=== PATIENT | female | born 1980 | race Caucasian/White ===

== ENCOUNTER 2019-06-19 14:07 | Emergency (ER) | payer OTHER ==
[2019-06-19 14:28] VITALS: BP 158/95; PULSE 117
[2019-06-19] MEDS ORDERED: HYDROmorphone 0.5 MG/0.5 ML Syringe IVPUSH ONE (14:57)
[2019-06-19] MEDS ORDERED: Ketorolac 30 MG/ML SDV IVPUSH ONE (14:57)
[2019-06-19] MEDS ORDERED: Ondansetron 4 MG/2 ML SDV IVPUSH ONE (14:57)
[2019-06-19] MEDS ORDERED: Sodium Chloride 0.9% 1,000 ML IV SCH (15:00)
[2019-06-19] MEDS ORDERED: Sodium Chloride 0.9% 10 ML Syringe FLUSH PRN (15:42)
--- NOTE | 2019-06-19 15:47 | EDM.PDOC ---
ED HPI GENERAL MEDICAL PROBLEM - General Chief Complaint: Flank Pain Stated Complaint: KIDNEY STONE Time Seen by Provider: 06/19/19 14:28 Source of Information: Reports: Patient History Limitations: Reports: No Limitations - History of Present Illness INITIAL COMMENTS - FREE TEXT/NARRATIVE: Patient is a 38-year-old female who presents with complaints of left-sided flank pain, nausea, and fever since last . Patient states that she did notice blood in her urine. Patient has a history of kidney stones some of which have cleared on their own and some that required lithotripsy. States last time she had a kidney stone was 1-1/2 years ago. Denies any abdominal pain , dysuria, or diarrhea. - Related Data Allergies Allergy/AdvReac Type Severity Reaction Status Date / Time No Known Allergies Allergy Verified 06/19/19 14:24 Home Meds: Home Meds Albuterol [Proventil Neb Soln] 1.25 mg INH Q8HR PRN 10/02/14 [History] Formoterol/Mometasone [Dulera 100 MCG/5 MCG] 2 puff INH DAILY 10/02/14 [History] Tiotropium [Spiriva HandiHaler] 2 puff INH Q8HR PRN 10/02/14 [History] Acetaminophen/HYDROcodone [[place] 325-5 MG] 1 tab PO Q6H PRN #12 tablet 11/05/14 [Rx] Levofloxacin [Levaquin] 500 mg PO Q24H #4 tablet 11/05/14 [Rx] Ondansetron [Zofran ODT] 4 mg PO Q6H PRN #5 tab.dis 11/05/14 [Rx] Cyclobenzaprine [Flexeril] 10 mg PO TID PRN #10 tab 06/19/19 [Rx] Past Medical History HEENT History: Reports: Impaired Vision Other HEENT History: wears glasses Respiratory History: Reports: Asthma [employer] History: Reports: Endometriosis, Other [employer] History: [id number] - Past Surgical History Female Surgical History: Reports: Kidney stone extraction, Lithotripsy/ESWL Social & Family History - Family History Family Medical History: Noncontributory - Tobacco Use Smoking Status *Q: Former Smoker Years of Tobacco use: 15 Used Tobacco, but Quit: Yes Month/Year Tobacco Last Used: 3 yrs ago - Caffeine Use Caffeine Use: Reports: Tea - Recreational Drug Use Recreational Drug Use: No ED ROS GENERAL - Review of Systems Review Of Systems: Comprehensive ROS is negative, except as noted in HPI. ED EXAM, RENAL/ - Physical Exam Exam: See Below Exam Limited By: No Limitations General Appearance: Alert, WD/WN, No Apparent Distress Respiratory/Chest: No Respiratory Distress, Lungs Clear, Normal Breath Sounds, No Accessory Muscle Use, Chest Non-Tender Cardiovascular: Normal Peripheral Pulses, Regular Rate, Rhythm, No Edema, No Gallop, No JVD, No Murmur, No Rub GI/Abdominal: Normal Bowel Sounds, Soft, Non-Tender, No Organomegaly, No Distention, No Abnormal Bruit, No Mass Back Exam: Normal Inspection, Full Range of Motion, CVA Tenderness (L) Neurological: Alert, Oriented, CN II-XII Intact, Normal Cognition, Normal Gait, Normal Reflexes, No Motor/Sensory Deficits Psychiatric: Normal Affect, Normal Mood Skin Exam: Warm, Dry, Intact, Normal Color, No Rash Course - Vital Signs Last Recorded V/S: Last Vital Signs Temp 98.1 F 06/19/19 14:25 Pulse 117 H 06/19/19 14:25 Resp 16 06/19/19 14:25 BP 158/95 H 06/19/19 14:25 Pulse Ox 98 06/19/19 14:25 - Orders/Labs/Meds Orders: Active Orders 24 hr Category Date Time Status Peripheral IV Care [RC] . DIRECTED Care 06/19/19 15:42 Active Peripheral IV Insertion Adult [OM.PC] Stat Oth 06/19/19 15:42 Ordered Labs: Laboratory Tests 06/19/19 06/19/19 06/19/19 Range/Units 14:38 16:55 16:55 WBC 10.38 H (3.98-10.04) K/mm3 RBC 3.88 L (3.98-5.22) M/mm3 Hgb 13.3 (11.2-15.7) gm/dl Hct 40.5 (34.1-44.9) % MCV 104.4 H (79.4-94.8) fl MCH 34.3 H (25.6-32.2) pg MCHC 32.8 (32.2-35.5) g/dl RDW Std Deviation 57.3 H (36.4-46.3) fL Plt Count 226 D (182-369) K/mm3 MPV 10.1 (9.4-12.3) fl Neut % (Auto) 76.9 H (34.0-71.1) % Lymph % (Auto) 16.0 L (19.3-51.7) % [place] % (Auto) 6.5 (4.7-12.5) % Eos % (Auto) 0.4 L (0.7-5.8) Baso % (Auto) 0.1 (0.1-1.2) % Neut # (Auto) 7.99 H (1.56-6.13) K/mm3 Lymph # (Auto) 1.66 (1.18-3.74) K/mm3 [place] # (Auto) 0.67 H (0.24-0.36) K/mm3 Eos # (Auto) 0.04 (0.04-0.36) K/mm3 Baso # (Auto) 0.01 (0.01-0.08) K/mm3 Manual Slide Review Abnormal smear Sodium 141 (136-145) mEq/L Potassium 3.3 L (3.5-5.1) mEq/L Chloride 102 (98-107) mEq/L Carbon Dioxide 26 (21-32) mEq/L Anion Gap 16.3 H (5-15) BUN 8 (7-18) mg/dL Creatinine 0.8 (0.55-1.02) mg/dL Est Cr Clr Drug Dosing 82.33 mL/min Estimated GFR (MDRD) > 60 (>60) mL/min BUN/Creatinine Ratio 10.0 L (14-18) Glucose 94 (74-106) mg/dL Calcium 8.3 L (8.5-10.1) mg/dL Total Bilirubin 0.8 (0.2-1.0) mg/dL AST 17 (15-37) U/L ALT 16 (14-59) U/L Alkaline Phosphatase 75 (46-116) U/L Total Protein 7.3 (6.4-8.2) g/dl Albumin 3.7 (3.4-5.0) g/dl Globulin 3.6 gm/dL Albumin/Globulin Ratio 1.0 (1-2) Urine Color Yellow (Yellow) Urine Appearance Cloudy H (Clear) Urine pH 5.5 (5.0-8.0) Ur Specific [place] > or = 1.030 (1.005-1.030) Urine Protein 1+ H (Negative) Urine Glucose (UA) Negative (Negative) Urine Ketones Negative (Negative) Urine Occult Blood Negative (Negative) Urine Nitrite Negative (Negative) Urine Bilirubin 1+ H (Negative) Urine Urobilinogen 0.2 (0.2-1.0) Ur Leukocyte Esterase Negative (Negative) Urine RBC Not seen (0-5) /hpf Urine WBC 0-5 (0-5) /hpf Ur Epithelial Cells 0-5 (0-5) /hpf Amorphous Sediment Many H (NOT SEEN) /hpf Urine Bacteria Moderate H (FEW) /hpf Urine Mucus Not seen (FEW) /hpf Meds: Medications Discontinued Medications Generic Name Dose Route Start Last Admin Trade Name Freq PRN Reason Stop Dose Admin Cyclobenzaprine HCl 10 mg 06/19/19 18:04 06/19/19 18:11 Flexeril PO 06/19/19 18:05 10 mg ONETIME ONE Administration Hydromorphone HCl 0.5 mg 06/19/19 14:57 06/19/19 15:16 Dilaudid IVPUSH 06/19/19 14:58 0.5 mg ONETIME ONE Administration Sodium Chloride 1,000 mls @ 999 mls/hr 06/19/19 15:00 06/19/19 15:15 Normal Saline IV 999 mls/hr ASDIRECTED FRIEDA Administration Ketorolac Tromethamine 30 mg 06/19/19 14:57 06/19/19 15:16 Toradol IVPUSH 06/19/19 14:58 30 mg ONETIME ONE Administration Ondansetron HCl 4 mg 06/19/19 14:57 06/19/19 15:16 Zofran IVPUSH 06/19/19 14:58 4 mg ONETIME ONE Administration Sodium Chloride 10 ml 06/19/19 15:42 06/19/19 15:43 Saline Flush FLUSH 10 ml ASDIRECTED PRN Administration Keep Vein Open - Re-Assessments/Exams Free Text/Narrative Re-Assessment/Exam: Patient's work-up was grossly unremarkable. Urinalysis was negative for infection or blood. CT scan of the abdomen did not show any signs of a kidney stone. Patient is tender to superficial palpation which leads me to me that this may be muscular in nature. We will discharge her home with Flexeril. Discharge instructions as documented. Departure - Departure Time of Disposition: 17:59 Disposition: Home, Self-Care 01 Condition: Fair Clinical Impression: Flank pain - Discharge Information *PRESCRIPTION DRUG MONITORING PROGRAM REVIEWED*: Yes *COPY OF PRESCRIPTION DRUG MONITORING REPORT IN PATIENT SAVANNA: No Prescriptions: Cyclobenzaprine [Flexeril] 10 mg PO TID PRN #10 tab PRN Reason: Muscle Spasm Instructions: Flank Pain, Adult Referrals: PCP,None [Primary Care Provider] - Forms: ED Department Discharge Additional Instructions: You were seen in the emergency department today for left-sided flank pain that started . Your work-up included blood work, urinalysis, and a CT of your abdomen and pelvis. Your blood work was negative for any signs of infection. Urinalysis did not show blood which is typically present with a kidney stone and there were also no signs of infection within your urine. CT of your abdomen showed no abnormalities. There are no signs of a kidney stone at this time. With your history, it is possible that she may have had a kidney stone at one point however it has passed. Your muscles are fairly tender to palpation on the back as well. It may be that the pain is coming from a muscle strain with in your back. A prescription has been sent for Flexeril, a muscle relaxer, to [facility]. Take this medication as prescribed for muscle spasms. Sure that you are getting enough fluid each day. If you should experience any worsening symptoms, please do not hesitate to return to the emergency department. Sepsis Event Note - Evaluation Sepsis Screening Result: No Definite Risk - Focused Exam Vital Signs: Vital Signs Temp Pulse Resp BP Pulse Ox 06/19/19 14:25 98.1 F 117 H 16 158/95 H 98 Date Exam was Performed: 06/19/19 Time Exam was Performed: 22:17 - My Orders Last 24 Hours: My Active Orders 06/19/19 15:42 Peripheral IV Care [RC] . DIRECTED Peripheral IV Insertion Adult [OM.PC] Stat - Assessment/Plan Last 24 Hours: My Active Orders 06/19/19 15:42 Peripheral IV Care [RC] . DIRECTED Peripheral IV Insertion Adult [OM.PC] Stat
--- NOTE | 2019-06-19 16:15 | CT ---
CT abdomen and pelvis Technique: Multiple axial sections were obtained from above the dome of the diaphragm inferiorly through the pubic symphysis. Intravenous and oral contrast not utilized. Study has been performed as a ureteral stone protocol. Comparison: Previous CT abdomen and pelvis exam of 06/06/13. Findings: There is a small calcification which is very close to the distal left ureter near the UVJ. I believe that this is outside the ureter as no ureteral dilatation is appreciated. No renal calculi are seen. No additional calcifications are noted. Visualized lung bases show nothing acute. Noncontrast appearance of the liver and spleen shows no discrete abnormality. Surgical clips are seen from prior cholecystectomy. Adrenal glands show no nodule. Pancreas shows no abnormality. Aorta shows no aneurysm. No retroperitoneal adenopathy or mesenteric abnormalities are seen. No pelvic mass or adenopathy is seen. No free fluid or inflammatory change is identified. Appendix is believed to be seen and appears normal in size. Bone window settings were reviewed. No acute osseous finding is appreciated. Impression: 1. Small calcification within the left pelvis near the bladder. As mentioned above, this is very close to the UVJ/left ureter but is felt to be outside the left ureter as no dilatation of the ureter is seen. No ureteral calculi are seen. 2. No renal calculi, ureteral dilatation or definite ureteral stone is appreciated. 3. Nothing acute is definitely appreciated on noncontrast CT study of the abdomen and pelvis. Diagnostic code #2 This report was dictated in [place] Standard Time
[2019-06-19] MEDS ORDERED: Cyclobenzaprine 10 MG Tab PO ONE (18:04)
== END 2019-06-19 18:15 | disposition home or self-care (01) ==
LOC: JD.ED 14:07
DX: R10.9 Unspecified abdominal pain (principal); J45.909 Unspecified asthma, uncomplicated; Z87.891 Personal history of nicotine dependence; Z87.442 Personal history of urinary calculi
CPT/HCPCS: 36415; 74176; 80053; 81001; 85025; 96361; 96374; 96375; 99284; A9270; J1170; J1885; J2405; J7030; 99283

== ENCOUNTER 2021-08-29 07:04 | Emergency (ER) | payer BC, OTHER ==
[2021-08-29 07:20] VITALS: BP 158/114; PULSE 108
[2021-08-29] MEDS ORDERED: Sodium Chloride 0.9% 10 ML Syringe FLUSH PRN (07:35)
[2021-08-29] MEDS ORDERED: Albuterol/Ipratropium 3.0-0.5 MG/3 ML Neb Soln NEB ONE ×2 (07:36→09:07)
[2021-08-29] MEDS ORDERED: methylPREDNISolone Sodium Succinate 125 MG/2 ML SDV IVPUSH ONE (07:36)
[2021-08-29 08:55] LABS: CORONAVIRUS COVID-19 NAA NEGATIVE (NEGATIVE)
== END 2021-08-29 10:38 | disposition home or self-care (01) ==
LOC: JD.ED 07:04
DX: J18.9 Pneumonia, unspecified organism (principal); Z20.822 Contact with and (suspected) exposure to COVID-19
CPT/HCPCS: 0241U; 36415; 71046; 80053; 85025; 86140; 94640; 96374; 99284; J2930; J3490; J7620-GY

== ENCOUNTER 2022-06-01 13:15 | Inpatient (IN) | payer BC ==
[2022-06-01] MEDS ORDERED: Albuterol/Ipratropium 3.0-0.5 MG/3 ML Neb Soln NEB ONE (13:33)
[2022-06-01] MEDS ORDERED: methylPREDNISolone Sodium Succinate 125 MG/2 ML SDV IVPUSH ONE (13:33)
[2022-06-01 14:02] LABS: ESTIMATED GFR 111 mL/min (>60)
[2022-06-01] MEDS ORDERED: Albuterol 0.083% 2.5 MG/3 ML Neb Soln NEB ONE ×3 (14:06→14:30)
[2022-06-01] MEDS ORDERED: Magnesium Sulfate (4.06 MEQ/ML) 5 GM/10 ML SDV IV ONE (14:07)
[2022-06-01] MEDS ORDERED: Albuterol 0.021% 0.63 MG/3 ML Neb Soln NEB ONE (14:15)
[2022-06-01 14:25] LABS: CORONAVIRUS COVID-19 NAA NEGATIVE (NEGATIVE)
[2022-06-01] MEDS ORDERED: Magnesium Sulfate/Water 2 GM in Premix Bag 1 BAG IV ONE (14:30)
[2022-06-01] MEDS ORDERED: Azithromycin 500 MG in Sodium Chloride 0.9% 250 ML IV ONE (15:41)
[2022-06-01] MEDS ORDERED: cefTRIAXone 2 GM in Sodium Chloride 0.9% 100 ML IV ONE ×2 (15:48→16:00)
[2022-06-01] MEDS ORDERED: Sodium Chloride 0.9% 500 ML IV ONE (15:53)
[2022-06-01] MEDS ORDERED: Sodium Chloride 0.9% 1,000 ML IV SCH (16:00)
[2022-06-01] MEDS ORDERED: Ondansetron 4 MG/2 ML SDV IV PRN (16:33)
[2022-06-01] MEDS ORDERED: Acetaminophen 325 MG Tab PO PRN (16:33)
[2022-06-01] MEDS ORDERED: Albuterol 0.083% 2.5 MG/3 ML Neb Soln NEB PRN (16:33)
[2022-06-01] MEDS ORDERED: Potassium Chloride 20 MEQ Tab.ER PO ONE (16:37)
[2022-06-01] MEDS: Albuterol/Ipratropium 3.0-0.5 MG/3 ML Neb Soln NEB SCH ×2 (16:43→20:08)
[2022-06-01] MEDS ORDERED: Albuterol/Ipratropium 3.0-0.5 MG/3 ML Neb Soln NEB SCH (16:45)
[2022-06-02] MEDS: Albuterol/Ipratropium 3.0-0.5 MG/3 ML Neb Soln NEB SCH ×6 (00:26→20:26)
[2022-06-02] MEDS ORDERED: Dextromethorphan HBr 30 MG/5 ML Susp ML PO PRN (07:53)
[2022-06-02] MEDS ORDERED: Phenol 1.4% Oral Spray 177 ML Bottle MUCMEM PRN (07:53)
[2022-06-02] MEDS: Enoxaparin 40 MG/0.4 ML Syringe SUBCUT SCH (08:57)
[2022-06-02] MEDS: methylPREDNISolone Sodium Succinate 125 MG/2 ML SDV IVPUSH SCH (08:57)
[2022-06-02] MEDS ORDERED: cefTRIAXone 500 MG Vial IVPUSH SCH (16:00)
[2022-06-02] MEDS: cefTRIAXone 2 GM in Sodium Chloride 0.9% 100 ML IV SCH (16:44)
[2022-06-02] MEDS: Azithromycin 500 MG in Sodium Chloride 0.9% 250 ML IV SCH (17:43)
[2022-06-02] MEDS: Dextromethorphan HBr 30 MG/5 ML Susp ML PO PRN (20:23)
[2022-06-03] MEDS: Albuterol/Ipratropium 3.0-0.5 MG/3 ML Neb Soln NEB SCH ×6 (00:07→21:15)
[2022-06-03] MEDS: methylPREDNISolone Sodium Succinate 125 MG/2 ML SDV IVPUSH SCH (08:28)
[2022-06-03] MEDS: Enoxaparin 40 MG/0.4 ML Syringe SUBCUT SCH (08:28)
[2022-06-03] MEDS: guaiFENesin 600 MG Tab.ER PO SCH ×2 (10:12→20:35)
[2022-06-03] MEDS: cefTRIAXone 2 GM in Sodium Chloride 0.9% 100 ML IV SCH (16:44)
[2022-06-03] MEDS: Azithromycin 500 MG in Sodium Chloride 0.9% 250 ML IV SCH (17:15)
[2022-06-03] MEDS: Dextromethorphan HBr 30 MG/5 ML Susp ML PO PRN (23:00)
[2022-06-04] MEDS: Albuterol/Ipratropium 3.0-0.5 MG/3 ML Neb Soln NEB SCH ×4 (01:13→16:08)
[2022-06-04] MEDS ORDERED: predniSONE 20 MG Tab PO SCH (07:00)
[2022-06-04] MEDS ORDERED: Potassium Chloride 20 MEQ Tab.ER PO ONE (10:04)
[2022-06-04] MEDS: guaiFENesin 600 MG Tab.ER PO SCH (10:20)
[2022-06-04] MEDS: Enoxaparin 40 MG/0.4 ML Syringe SUBCUT SCH (10:20)
[2022-06-04 13:26] VITALS: BP 150/108; PULSE 106
== END 2022-06-04 13:23 | disposition home or self-care (01) | DRG 139 ==
LOC: JD.ED 13:15 → JD.MS 16:27
PROVIDERS: ADMIT Internal Medicine; ATTEND Internal Medicine
DX: J15.7 Pneumonia due to Mycoplasma pneumoniae (principal); J96.01 Acute respiratory failure with hypoxia; J20.9 Acute bronchitis, unspecified; J45.51 Severe persistent asthma with (acute) exacerbation; H54.7 Unspecified visual loss; Z20.822 Contact with and (suspected) exposure to COVID-19; Z79.899 Other long term (current) drug therapy; Z87.891 Personal history of nicotine dependence
CPT/HCPCS: 0240U; 36415; 36600; 71045; 71045-26; 80048; 80053; 82803; 83605; 84484; 85025; 85379; 86738; 87040; 93005; 94640; 94761; 96365; 96366; 96367; 96368; 96375; 99285-25; A9270-GY; J0456; J0696; J1650; J2930; J3475; J7030; J7050; J7512; J7620-GY

== ENCOUNTER 2022-08-29 14:02 | Emergency (ER) | payer BC ==
[2022-08-29 14:16] VITALS: BP 166/99; PULSE 96
[2022-08-29] MEDS ORDERED: HYDROmorphone 1 MG/ML Syringe IVPUSH ONE (14:36)
[2022-08-29] MEDS ORDERED: Tamsulosin 0.4 MG Cap.ER PO ONE (14:36)
[2022-08-29] MEDS ORDERED: Ondansetron 4 MG/2 ML SDV IVPUSH ONE (14:36)
[2022-08-29] MEDS ORDERED: Ketorolac 30 MG/ML SDV IVPUSH STA (14:36)
[2022-08-29] MEDS ORDERED: Sodium Chloride 0.9% 1,000 ML IV SCH (14:45)
== END 2022-08-29 18:19 | disposition home or self-care (01) ==
LOC: JD.ED 14:02
DX: R10.9 Unspecified abdominal pain (principal); R11.2 Nausea with vomiting, unspecified; J45.909 Unspecified asthma, uncomplicated; Z87.891 Personal history of nicotine dependence; Z90.49 Acquired absence of other specified parts of digestive tract
CPT/HCPCS: 74176; 81001; 96361; 96374; 96375; 99284; A9270; J1170; J1885; J2405; J7030

== ENCOUNTER 2023-09-21 15:57 | Observation (INO) | payer BC, OTHER ==
[2023-09-21 16:43] LABS: BASOPHILS ABSOLUTE AUTO 0.1 K/mm3 (0.0-0.2); BASOPHILS PERCENT AUTO 0.8 % (0.0-1.0); EOSINOPHILS ABSOLUTE AUTO 0.1 K/mm3 (0.0-0.4); EOSINOPHILS PERCENT AUTO 1.2 % (0.0-6.0); HEMATOCRIT 37.9 % (37.0-47.0); HEMOGLOBIN 12.6 gm/dl (12.0-16.0); IMMATURE GRAN ABSOLUTE AUTO 0.02 K/mm3 (0.00-0.05); IMMATURE GRAN PERCENT AUTO 0.3 % (0.0-0.4); LYMPHOCYTES ABSOLUTE AUTO 2.2 K/mm3 (1.0-4.8); LYMPHOCYTES PERCENT AUTO 36.7 % (24.0-44.0); MEAN CORPUSCULAR HEMOGLOBIN 32.4 pg (28.0-32.0); MEAN CORPUSCULAR HGB CONC 33.2 g/dl (32.0-36.0); MEAN CORPUSCULAR VOLUME 97.4 fl (83.0-99.0); MEAN PLATELET VOLUME 10.2 fl (9.4-12.3); MONOCYTES ABSOLUTE AUTO 0.5 K/mm3 (0.0-0.8); MONOCYTES PERCENT AUTO 9.1 % (0.0-8.0); NEUTROPHILS ABSOLUTE AUTO 3.1 K/mm3 (1.8-7.7); NEUTROPHILS PERCENT AUTO 51.9 % (41.0-71.0); PLATELET COUNT,PLT 253 K/mm3 (150-400); RED BLOOD CELL COUNT 3.89 M/mm3 (4.10-5.30); WHITE BLOOD CELL COUNT,WBC 5.94 K/mm3 (3.9-11.3)
[2023-09-21 16:59] LABS: INR 1.02; PROTHROMBIN TIME 10.9 SECONDS (9.7-12.0)
[2023-09-21 17:03] LABS: A/G RATIO 1.1 (1-2); ALBUMIN 3.8 g/dl (3.4-5.0); ANION GAP 16.3 (5-15); BILIRUBIN TOTAL 0.7 mg/dL (0.2-1.0); BUN/CREATININE RATIO 18.6 (14-18); CALCIUM 9.1 mg/dL (8.5-10.1); CREATININE 0.7 mg/dL (0.55-1.02); EST CRCL DRUG DOSING (CG) 86.6 mL/min; MAGNESIUM 1.2 mg/dL (1.8-2.4); PHOSPHORUS 3.5 mg/dL (2.6-4.7); POTASSIUM,K 3.3 mEq/L (3.5-5.1); PROTEIN TOTAL,TP 7.3 g/dl (6.4-8.2)
[2023-09-21 17:25] LABS: APPEARANCE,URINE CLEAR (Clear); BILIRUBIN,URINE NEGATIVE (Negative); COLOR,URINE YELLOW (Yellow); GLUCOSE,URINE NEGATIVE (Negative); KETONES,URINE NEGATIVE (Negative); LEUKOCYTE ESTERASE,URINE NEGATIVE (Negative); NITRITE,URINE NEGATIVE (Negative); OCCULT BLOOD,URINE NEGATIVE (Negative); PROTEIN,URINE NEGATIVE (Negative); UROBILINOGEN,URINE 0.2 (0.2-1.0)
[2023-09-21] MEDS: Albuterol/Ipratropium 3.0-0.5 MG/3 ML Neb Soln NEB ONE (18:38)
[2023-09-21] MEDS: methylPREDNISolone Sodium Succinate 125 MG/2 ML SDV IVPUSH ONE (18:40)
[2023-09-21] MEDS: Aspirin 81 MG Tab.Chew PO ONE (20:30)
[2023-09-21] MEDS: Magnesium Sulfate/Water 2 GM in Premix Bag 1 BAG IV ONE (20:31)
[2023-09-21] MEDS: hydrALAZINE 20 MG/ML SDV IVPUSH ONE (20:31)
[2023-09-21] MEDS: Non-Formulary Medication 1 Each (Budesonide/Formoterol Fumarate [Symbicort 160-4.5 Mcg Inh INH SCH (22:03)
[2023-09-21] MEDS ORDERED: Albuterol 0.042% 1.25 MG/3 ML Neb Soln INH PRN (22:07)
[2023-09-21] MEDS: Montelukast 10 MG Tab PO SCH (22:21)
[2023-09-21] MEDS: diphenhydrAMINE 25 MG Cap PO SCH (22:21)
[2023-09-21] MEDS: Albuterol/Ipratropium 3.0-0.5 MG/3 ML Neb Soln NEB SCH (22:52)
[2023-09-22 04:54] LABS: BASOPHILS PERCENT AUTO 0.1 % (0.0-1.0); HEMATOCRIT 39.1 % (37.0-47.0); IMMATURE GRAN ABSOLUTE AUTO 0.04 K/mm3 (0.00-0.05); IMMATURE GRAN PERCENT AUTO 0.5 % (0.0-0.4); LYMPHOCYTES ABSOLUTE AUTO 0.7 K/mm3 (1.0-4.8); LYMPHOCYTES PERCENT AUTO 8.1 % (24.0-44.0); MEAN CORPUSCULAR HEMOGLOBIN 32.2 pg (28.0-32.0); MEAN CORPUSCULAR HGB CONC 33.2 g/dl (32.0-36.0); MEAN CORPUSCULAR VOLUME 96.8 fl (83.0-99.0); MEAN PLATELET VOLUME 10.6 fl (9.4-12.3); MONOCYTES ABSOLUTE AUTO 0.1 K/mm3 (0.0-0.8); NEUTROPHILS ABSOLUTE AUTO 7.2 K/mm3 (1.8-7.7); NEUTROPHILS PERCENT AUTO 90.3 % (41.0-71.0); PLATELET COUNT,PLT 259 K/mm3 (150-400); RED BLOOD CELL COUNT 4.04 M/mm3 (4.10-5.30); WHITE BLOOD CELL COUNT,WBC 7.99 K/mm3 (3.9-11.3)
[2023-09-22 05:36] LABS: ALBUMIN 3.4 g/dl (3.4-5.0); ANION GAP 17.6 (5-15); BILIRUBIN TOTAL 0.9 mg/dL (0.2-1.0); BUN/CREATININE RATIO 13.3 (14-18); CALCIUM 8.6 mg/dL (8.5-10.1); CREATININE 0.9 mg/dL (0.55-1.02); EST CRCL DRUG DOSING (CG) 67.36 mL/min; POTASSIUM,K 3.6 mEq/L (3.5-5.1); PROTEIN TOTAL,TP 6.9 g/dl (6.4-8.2)
[2023-09-22 06:04] LABS: SLIDE REVIEW ABNORMAL SMEAR
[2023-09-22] MEDS: Magnesium Sulfate/Water 2 GM/50 ML BAG IV ONE (08:10)
[2023-09-22] MEDS: oxyCODONE 5 MG Tab PO ONE (08:10)
[2023-09-22] MEDS: Nicotine 14 MG/24 Hr Patch TRDERM ONE (08:14)
[2023-09-22 09:15] LABS: HEMOGLOBIN A1C 5.1 %
[2023-09-22] MEDS: Losartan 50 MG Tab PO SCH (09:44)
[2023-09-22 11:28] VITALS: BP 126/83; PULSE 114
== END 2023-09-22 14:24 | disposition home or self-care (01) ==
LOC: JD.ED 15:57 → JD.MS 19:12
PROVIDERS: ADMIT Internal Medicine; ATTEND Internal Medicine
DX: G45.9 Transient cerebral ischemic attack, unspecified (principal); I16.0 Hypertensive urgency; E83.42 Hypomagnesemia; I10 Essential (primary) hypertension; J45.909 Unspecified asthma, uncomplicated; F17.210 Nicotine dependence, cigarettes, uncomplicated; Z79.899 Other long term (current) drug therapy
CPT/HCPCS: 36415; 70450; 70551; 71045; 80053; 81003; 81025; 82947; 83036; 83735; 84100; 84484; 85025; 85610; 94640; 94760; 94761; 96365; 96375; 97161; 99285; A9270; J0360; J2930; J3475; 96366; G0378; J7620-GY

== ENCOUNTER 2023-10-31 22:10 | Emergency (ER) | payer OTHER ==
[2023-10-31 22:37] LABS: BASOPHILS PERCENT AUTO 0.4 % (0.0-1.0); EOSINOPHILS ABSOLUTE AUTO 0.1 K/mm3 (0.0-0.4); EOSINOPHILS PERCENT AUTO 1.2 % (0.0-6.0); HEMATOCRIT 35.4 % (37.0-47.0); HEMOGLOBIN 11.8 gm/dl (12.0-16.0); IMMATURE GRAN ABSOLUTE AUTO 0.02 K/mm3 (0.00-0.05); IMMATURE GRAN PERCENT AUTO 0.2 % (0.0-0.4); LYMPHOCYTES ABSOLUTE AUTO 2.2 K/mm3 (1.0-4.8); LYMPHOCYTES PERCENT AUTO 25.3 % (24.0-44.0); MEAN CORPUSCULAR HEMOGLOBIN 32.7 pg (28.0-32.0); MEAN CORPUSCULAR HGB CONC 33.3 g/dl (32.0-36.0); MEAN CORPUSCULAR VOLUME 98.1 fl (83.0-99.0); MEAN PLATELET VOLUME 10.1 fl (9.4-12.3); MONOCYTES ABSOLUTE AUTO 0.7 K/mm3 (0.0-0.8); MONOCYTES PERCENT AUTO 7.9 % (0.0-8.0); NEUTROPHILS ABSOLUTE AUTO 5.6 K/mm3 (1.8-7.7); PLATELET COUNT,PLT 254 K/mm3 (150-400); RED BLOOD CELL COUNT 3.61 M/mm3 (4.10-5.30); WHITE BLOOD CELL COUNT,WBC 8.53 K/mm3 (3.9-11.3)
[2023-10-31 22:47] LABS: INR 0.96; PROTHROMBIN TIME 10.3 SECONDS (9.7-12.0)
[2023-10-31 22:48] LABS: PTT,PARTIAL THROMBOPLSTIN TIME 27.1 SECONDS (21.7-31.4)
[2023-10-31 23:03] LABS: A/G RATIO 1.1 (1-2); ALANINE AMINOTRANSFERASE,ALT 23 U/L (14-59); ALBUMIN 4.1 g/dl (3.4-5.0); ALKALINE PHOSPHATASE 77 U/L (46-116); ANION GAP 17.8 (5-15); ASPARTATE AMNIOTRANSFERASE,AST 28 U/L (15-37); BILIRUBIN TOTAL 0.4 mg/dL (0.2-1.0); BLOOD UREA NITROGEN,BUN 17 mg/dL (7-18); BUN/CREATININE RATIO 15.5 (14-18); CALCIUM 7.6 mg/dL (8.5-10.1); CARBON DIOXIDE,CO2 28 mEq/L (21-32); CHLORIDE,CL 94 mEq/L (98-107); CREATININE 1.1 mg/dL (0.55-1.02); ESTIMATED GFR 64 mL/min (>60); GLUCOSE RANDOM 102 mg/dL (70-99); POTASSIUM,K 2.8 mEq/L (3.5-5.1); SODIUM,NA 137 mEq/L (136-145); TROPONIN I HIGH SENSITIVITY 7 pg/mL (<=51)
[2023-10-31] MEDS: Iopamidol 755 Mg/ML 100 ML Bottle IVPUSH ONE (23:09)
[2023-10-31 23:11] LABS: HCG QUANTITATIVE < 1.0 mIU/mL
[2023-10-31] MEDS ORDERED: Sodium Chloride 0.9% 100 ML IV SCH (23:15)
[2023-10-31] MEDS: Sodium Chloride 0.9% 10 ML Syringe FLUSH PRN (23:27)
[2023-11-01] MEDS: Sodium Chloride 0.9% 1,000 ML IV SCH (00:36)
[2023-11-01] MEDS: Potassium Chloride 10 MEQ in Premix Bag 1 BAG IV ONE (00:37)
[2023-11-01] MEDS: Potassium Chloride 20 MEQ Tab.ER PO ONE (00:37)
[2023-11-01] MEDS: Calcium Carbonate/Vitamin D3 600 MG-200 Units Tab PO ONE (00:44)
[2023-11-01 02:25] VITALS: BP 125/82; PULSE 100
== END 2023-11-01 02:00 | disposition home or self-care (01) ==
LOC: JD.ED 22:10
DX: R53.1 Weakness (principal); Z86.73 Personal history of transient ischemic attack (TIA), and cerebral infarction without residual deficits; I10 Essential (primary) hypertension; Z79.51 Long term (current) use of inhaled steroids; Z79.82 Long term (current) use of aspirin; Z79.899 Other long term (current) drug therapy
CPT/HCPCS: 36415; 70450; 70496; 70498; 80053; 82947; 84484; 84702; 85025; 85610; 85730; 93005; 96365; 99285; A9270; J3480; J3490; J7030; Q9967

== ENCOUNTER 2023-11-23 18:14 | Emergency (ER) | payer OTHER ==
[2023-11-23 18:30] VITALS: BP 135/115; PULSE 119
[2023-11-23 18:58] LABS: BASOPHILS PERCENT AUTO 0.5 % (0.0-1.0); EOSINOPHILS ABSOLUTE AUTO 0.1 K/mm3 (0.0-0.4); EOSINOPHILS PERCENT AUTO 1.2 % (0.0-6.0); HEMATOCRIT 33.6 % (37.0-47.0); HEMOGLOBIN 11.4 gm/dl (12.0-16.0); IMMATURE GRAN ABSOLUTE AUTO 0.02 K/mm3 (0.00-0.05); IMMATURE GRAN PERCENT AUTO 0.3 % (0.0-0.4); LYMPHOCYTES ABSOLUTE AUTO 1.8 K/mm3 (1.0-4.8); LYMPHOCYTES PERCENT AUTO 27.4 % (24.0-44.0); MEAN CORPUSCULAR HGB CONC 33.9 g/dl (32.0-36.0); MEAN CORPUSCULAR VOLUME 100.3 fl (83.0-99.0); MEAN PLATELET VOLUME 10.3 fl (9.4-12.3); MONOCYTES ABSOLUTE AUTO 0.6 K/mm3 (0.0-0.8); MONOCYTES PERCENT AUTO 9.5 % (0.0-8.0); NEUTROPHILS PERCENT AUTO 61.1 % (41.0-71.0); PLATELET COUNT,PLT 237 K/mm3 (150-400); RED BLOOD CELL COUNT 3.35 M/mm3 (4.10-5.30); WHITE BLOOD CELL COUNT,WBC 6.53 K/mm3 (3.9-11.3)
[2023-11-23] MEDS: Aspirin 81 MG Tab.Chew PO ONE (19:01)
[2023-11-23] MEDS: Alum Hydrox/Mag Hydrox/Simeth 30 ML, Lidocaine 2% 15 ML PO ONE (19:01)
[2023-11-23] MEDS: Sodium Chloride 0.9% 1,000 ML IV ONE (19:02)
[2023-11-23] MEDS: Sodium Chloride 0.9% 10 ML Syringe FLUSH PRN (19:02)
[2023-11-23] MEDS: Famotidine 20 MG Tab PO ONE (19:02)
[2023-11-23 19:33] LABS: A/G RATIO 1.1 (1-2); ALBUMIN 3.7 g/dl (3.4-5.0); ANION GAP 17.2 (5-15); BILIRUBIN TOTAL 0.5 mg/dL (0.2-1.0); CALCIUM 6.3 mg/dL (8.5-10.1); EST CRCL DRUG DOSING (CG) 63.28 mL/min; MAGNESIUM 0.6 mg/dL (1.8-2.4); POTASSIUM,K 3.2 mEq/L (3.5-5.1); PROTEIN TOTAL,TP 7.1 g/dl (6.4-8.2); TSH 1.041 uIU/mL (0.358-3.74)
[2023-11-23] MEDS: LORazepam 2 MG/ML SDV IVPUSH ONE (21:45)
== END 2023-11-23 22:49 | disposition home or self-care (01) ==
LOC: JD.ED 18:14
DX: R07.89 Other chest pain (principal); F41.9 Anxiety disorder, unspecified; I10 Essential (primary) hypertension; J45.909 Unspecified asthma, uncomplicated; Z90.49 Acquired absence of other specified parts of digestive tract; Z79.899 Other long term (current) drug therapy
CPT/HCPCS: 36415; 71045; 80053; 83735; 84443; 84484; 84703; 85025; 93005; 96374; 99285; A9270; J2060; J3490; J7030; 93010; 99283

== ENCOUNTER 2023-12-22 12:39 | Inpatient (IN) | payer OTHER ==
[2023-12-22] MEDS: Lactated Ringers 1,000 ML IV ONE (13:56)
[2023-12-22] MEDS: Potassium Chloride 10 MEQ in Premix Bag 1 BAG IV SCH ×3 (13:56→22:25)
[2023-12-22 13:57] LABS: BASOPHILS PERCENT AUTO 0.5 % (0.0-1.0); EOSINOPHILS ABSOLUTE AUTO 0.1 K/mm3 (0.0-0.4); EOSINOPHILS PERCENT AUTO 0.9 % (0.0-6.0); HEMATOCRIT 31.2 % (37.0-47.0); HEMOGLOBIN 10.7 gm/dl (12.0-16.0); IMMATURE GRAN ABSOLUTE AUTO 0.03 K/mm3 (0.00-0.05); IMMATURE GRAN PERCENT AUTO 0.3 % (0.0-0.4); LYMPHOCYTES ABSOLUTE AUTO 1.3 K/mm3 (1.0-4.8); LYMPHOCYTES PERCENT AUTO 15.2 % (24.0-44.0); MEAN CORPUSCULAR HEMOGLOBIN 35.7 pg (28.0-32.0); MEAN CORPUSCULAR HGB CONC 34.3 g/dl (32.0-36.0); MEAN PLATELET VOLUME 10.2 fl (9.4-12.3); MONOCYTES ABSOLUTE AUTO 0.5 K/mm3 (0.0-0.8); MONOCYTES PERCENT AUTO 5.8 % (0.0-8.0); NEUTROPHILS ABSOLUTE AUTO 6.7 K/mm3 (1.8-7.7); NEUTROPHILS PERCENT AUTO 77.3 % (41.0-71.0); PLATELET COUNT,PLT 218 K/mm3 (150-400); WHITE BLOOD CELL COUNT,WBC 8.64 K/mm3 (3.9-11.3)
[2023-12-22] MEDS: Sodium Chloride 0.9% 10 ML Syringe FLUSH PRN (13:57)
[2023-12-22 14:14] LABS: ALBUMIN 3.3 g/dl (3.4-5.0); ANION GAP 14.5 (5-15); BILIRUBIN TOTAL 1.5 mg/dL (0.2-1.0); BUN/CREATININE RATIO 7.5 (14-18); CALCIUM 7.2 mg/dL (8.5-10.1); CREATININE 0.8 mg/dL (0.55-1.02); EST CRCL DRUG DOSING (CG) 75.01 mL/min; MAGNESIUM 0.6 mg/dL (1.8-2.4); PROTEIN TOTAL,TP 6.6 g/dl (6.4-8.2)
[2023-12-22 14:16] LABS: POTASSIUM,K 2.5 mEq/L (3.5-5.1)
[2023-12-22] MEDS: Albuterol/Ipratropium 3.0-0.5 MG/3 ML Neb Soln NEB ONE (14:23)
[2023-12-22] MEDS: Magnesium Sulfate/Water 2 GM in Premix Bag 1 BAG IV SCH ×2 (14:51→15:43)
[2023-12-22] MEDS ORDERED: Acetaminophen 325 MG Tab PO PRN (15:50)
[2023-12-22] MEDS ORDERED: Ondansetron 4 MG/2 ML SDV IV PRN (15:50)
[2023-12-22] MEDS: Sodium Chloride 0.9% 1,000 ML IV SCH (18:05)
[2023-12-22] MEDS: Montelukast 10 MG Tab PO SCH (20:25)
[2023-12-22] MEDS: Rosuvastatin 10 MG Tab PO SCH (20:25)
[2023-12-22] MEDS: Albuterol/Ipratropium 3.0-0.5 MG/3 ML Neb Soln NEB PRN (21:20)
[2023-12-23 04:55] LABS: HEMATOCRIT 28.6 % (37.0-47.0); HEMOGLOBIN 9.5 gm/dl (12.0-16.0); MEAN CORPUSCULAR HEMOGLOBIN 36.4 pg (28.0-32.0); MEAN CORPUSCULAR HGB CONC 33.2 g/dl (32.0-36.0); MEAN CORPUSCULAR VOLUME 109.6 fl (83.0-99.0); MEAN PLATELET VOLUME 10.7 fl (9.4-12.3); PLATELET COUNT,PLT 207 K/mm3 (150-400); RED BLOOD CELL COUNT 2.61 M/mm3 (4.10-5.30); WHITE BLOOD CELL COUNT,WBC 6.44 K/mm3 (3.9-11.3)
[2023-12-23 05:29] LABS: A/G RATIO 0.9 (1-2); ALBUMIN 2.8 g/dl (3.4-5.0); ANION GAP 10.9 (5-15); BILIRUBIN TOTAL 0.6 mg/dL (0.2-1.0); MAGNESIUM 1.7 mg/dL (1.8-2.4); POTASSIUM,K 2.9 mEq/L (3.5-5.1); PROTEIN TOTAL,TP 5.9 g/dl (6.4-8.2)
[2023-12-23] MEDS: Potassium Chloride 10 MEQ in Premix Bag 1 BAG IV SCH (07:31)
[2023-12-23] MEDS: Magnesium Sulfate/Water 2 GM in Premix Bag 1 BAG IV ONE (07:32)
[2023-12-23] MEDS ORDERED: Calcium Chloride 10% 1 GM/10 ML Syringe IVPUSH ONE (08:00)
[2023-12-23] MEDS: Folic Acid 1 MG Tab PO SCH (08:26)
[2023-12-23] MEDS: FLUoxetine 20 MG Cap PO SCH (08:26)
[2023-12-23] MEDS: Potassium Chloride 20 MEQ Tab.ER PO SCH (08:26)
[2023-12-23] MEDS: Enoxaparin 40 MG/0.4 ML Syringe SUBCUT SCH (08:26)
[2023-12-23] MEDS: Aspirin 81 MG Tab.EC PO SCH (08:26)
[2023-12-23] MEDS: TRELEGY ELLIPTA INH SCH (15:18)
[2023-12-24 05:35] LABS: A/G RATIO 0.8 (1-2); ALBUMIN 2.6 g/dl (3.4-5.0); ANION GAP 12.4 (5-15); BILIRUBIN TOTAL 0.3 mg/dL (0.2-1.0); BUN/CREATININE RATIO 7.5 (14-18); CALCIUM 7.2 mg/dL (8.5-10.1); CREATININE 0.8 mg/dL (0.55-1.02); EST CRCL DRUG DOSING (CG) 75.01 mL/min; MAGNESIUM 1.2 mg/dL (1.8-2.4); POTASSIUM,K 3.4 mEq/L (3.5-5.1); PROTEIN TOTAL,TP 5.7 g/dl (6.4-8.2)
[2023-12-24] MEDS: Magnesium Sulfate/Water 4 GM in Premix Bag 1 BAG IV ONE (08:07)
[2023-12-24] MEDS: predniSONE 10 MG Tab PO SCH (08:12)
[2023-12-24] MEDS: Doxycycline Monohydrate 100 MG Cap PO SCH (08:13)
[2023-12-25 06:15] LABS: A/G RATIO 0.8 (1-2); ALBUMIN 2.7 g/dl (3.4-5.0); ANION GAP 8.9 (5-15); BILIRUBIN TOTAL 0.2 mg/dL (0.2-1.0); BUN/CREATININE RATIO 7.5 (14-18); CALCIUM 7.3 mg/dL (8.5-10.1); CREATININE 0.8 mg/dL (0.55-1.02); EST CRCL DRUG DOSING (CG) 75.01 mL/min; MAGNESIUM 1.4 mg/dL (1.8-2.4); POTASSIUM,K 3.9 mEq/L (3.5-5.1); PROTEIN TOTAL,TP 6.2 g/dl (6.4-8.2)
[2023-12-25] MEDS: Magnesium Sulfate/Water 4 GM in Premix Bag 1 BAG IV ONE ×2 (07:02→12:08)
[2023-12-25] MEDS: Potassium Chloride 20 MEQ Tab.ER PO ONE (13:43)
[2023-12-25] MEDS ORDERED: Albuterol/Ipratropium 3.0-0.5 MG/3 ML Neb Soln NEB PRN (16:06)
[2023-12-25 17:25] VITALS: BP 133/86; PULSE 112
[2023-12-25] MEDS: Losartan 50 MG Tab PO SCH (17:27)
[2023-12-25] MEDS ORDERED: Non-Formulary Medication 1 Each (Budesonide/Formoterol Fumarate [Symbicort 160-4.5 Mcg Inh INH SCH (21:00)
[2023-12-26] MEDS ORDERED: Non-Formulary Medication 1 Each (Fluticasone/Umeclidin/Vilanter [Trelegy Ellipta 100-62.5- INH SCH (09:00)
== END 2023-12-25 17:05 | disposition home or self-care (01) | DRG 641 ==
LOC: JD.ED 12:39 → JD.MS 15:33
PROVIDERS: ADMIT Internal Medicine; ATTEND Internal Medicine
DX: E87.6 Hypokalemia (principal); I10 Essential (primary) hypertension; F41.9 Anxiety disorder, unspecified; E83.42 Hypomagnesemia; E83.51 Hypocalcemia; J45.50 Severe persistent asthma, uncomplicated; T50.2X5A Adverse effect of carbonic-anhydrase inhibitors, benzothiadiazides and other diuretics, initial encounter; D53.9 Nutritional anemia, unspecified; R35.0 Frequency of micturition; Z86.73 Personal history of transient ischemic attack (TIA), and cerebral infarction without residual deficits; Z79.82 Long term (current) use of aspirin; Z79.899 Other long term (current) drug therapy; Z87.442 Personal history of urinary calculi; Z87.440 Personal history of urinary (tract) infections; Z90.49 Acquired absence of other specified parts of digestive tract; Z98.890 Other specified postprocedural states
CPT/HCPCS: 36415; 71045; 71045-26; 80053; 82607; 83735; 84484; 85025; 85027; 93005; 93010; 94640; 94760; 94761; 96365; 96368; 99285; 99285-25; A9270-GY; J0612; J1650; J3475; J3480; J3490; J7030; J7120; J7512; J7620-GY

== ENCOUNTER 2024-05-12 05:26 | Inpatient (IN) | payer OTHER ==
[2024-05-12] MEDS ORDERED: Sodium Chloride 0.9% 10 ML Syringe FLUSH PRN (05:49)
[2024-05-12] MEDS: methylPREDNISolone Sodium Succinate 125 MG/2 ML SDV IVPUSH ONE (05:54)
[2024-05-12] MEDS: Sodium Chloride 0.9% 1,000 ML IV ONE (05:57)
[2024-05-12 06:01] LABS: BASOPHILS PERCENT AUTO 0.2 % (0.0-1.0); EOSINOPHILS ABSOLUTE AUTO 0.1 K/mm3 (0.0-0.4); EOSINOPHILS PERCENT AUTO 0.8 % (0.0-6.0); HEMATOCRIT 33.9 % (37.0-47.0); HEMOGLOBIN 10.9 gm/dl (12.0-16.0); IMMATURE GRAN ABSOLUTE AUTO 0.03 K/mm3 (0.00-0.05); IMMATURE GRAN PERCENT AUTO 0.3 % (0.0-0.4); LYMPHOCYTES ABSOLUTE AUTO 2.9 K/mm3 (1.0-4.8); LYMPHOCYTES PERCENT AUTO 31.5 % (24.0-44.0); MEAN CORPUSCULAR HEMOGLOBIN 30.1 pg (28.0-32.0); MEAN CORPUSCULAR HGB CONC 32.2 g/dl (32.0-36.0); MEAN CORPUSCULAR VOLUME 93.6 fl (83.0-99.0); MEAN PLATELET VOLUME 9.9 fl (9.4-12.3); MONOCYTES ABSOLUTE AUTO 0.8 K/mm3 (0.0-0.8); MONOCYTES PERCENT AUTO 8.8 % (0.0-8.0); NEUTROPHILS ABSOLUTE AUTO 5.4 K/mm3 (1.8-7.7); NEUTROPHILS PERCENT AUTO 58.4 % (41.0-71.0); PLATELET COUNT,PLT 314 K/mm3 (150-400); RED BLOOD CELL COUNT 3.62 M/mm3 (4.10-5.30); WHITE BLOOD CELL COUNT,WBC 9.23 K/mm3 (3.9-11.3)
[2024-05-12] MEDS: Albuterol/Ipratropium 3.0-0.5 MG/3 ML Neb Soln NEB ONE ×2 (06:04→08:28)
[2024-05-12] MEDS: Albuterol/Ipratropium 3.0-0.5 MG/3 ML Neb Soln NEB SCH ×2 (06:05→15:46)
[2024-05-12 06:15] LABS: A/G RATIO 0.9 (1-2); ALBUMIN 3.3 g/dl (3.4-5.0); ANION GAP 11.2 (5-15); BILIRUBIN TOTAL 0.6 mg/dL (0.2-1.0); CALCIUM 7.8 mg/dL (8.5-10.1); CREATININE 0.8 mg/dL (0.55-1.02); EST CRCL DRUG DOSING (CG) 75.01 mL/min; POTASSIUM,K 3.2 mEq/L (3.5-5.1); PROTEIN TOTAL,TP 7.2 g/dl (6.4-8.2)
[2024-05-12 06:23] LABS: HCG QUALITATIVE,SERUM NEGATIVE (NEGATIVE)
[2024-05-12 06:40] LABS: PRO B-TYPE NATRIUR PEPT,BNPPRO 673 pg/mL (0-125)
[2024-05-12] MEDS: Labetalol 100 MG/20 ML MDV IVPUSH PRN (08:41)
[2024-05-12] MEDS: Potassium Chloride 10 MEQ in Premix Bag 1 BAG IV SCH (08:42)
[2024-05-12] MEDS: Sodium Chloride 0.9% 500 ML IV ONE (08:43)
[2024-05-12 09:18] LABS: CORONAVIRUS COVID-19 NAA NEGATIVE (NEGATIVE); INFLUENZA A NAA NEGATIVE (NEGATIVE); RESPIRATORY SYNCYTIAL VIR NAA NEGATIVE (NEGATIVE)
[2024-05-12] MEDS: hydrALAZINE 20 MG/ML SDV IVPUSH PRN (11:45)
[2024-05-12] MEDS ORDERED: Albuterol 0.5% 2.5 MG/0.5 ML Neb Soln NEB PRN (14:22)
[2024-05-12] MEDS ORDERED: Albuterol 0.042% 1.25 MG/3 ML Neb Soln INH PRN (14:40)
[2024-05-12] MEDS ORDERED: Acetaminophen 325 MG Tab PO PRN (15:07)
[2024-05-12] MEDS ORDERED: Morphine 2 MG/ML SYRINGE IVPUSH PRN (15:07)
[2024-05-12] MEDS ORDERED: Ondansetron 4 MG/2 ML SDV IV PRN (15:07)
[2024-05-12] MEDS ORDERED: Melatonin 3 MG Tab PO PRN (15:07)
[2024-05-12] MEDS ORDERED: Naloxone 0.4 MG/ML SDV IVPUSH PRN (15:07)
[2024-05-12] MEDS ORDERED: Sennosides/Docusate Sodium 50-8.6 MG Tab PO PRN (15:07)
[2024-05-12] MEDS: Furosemide 40 MG/4 ML VIAL IVPUSH ONE (15:33)
[2024-05-12] MEDS: Metoprolol Succinate 25 MG Tab.ER PO SCH (15:42)
[2024-05-12] MEDS: Losartan 50 MG Tab PO SCH (15:43)
[2024-05-12] MEDS: oxyCODONE 5 MG Tab PO PRN (18:25)
[2024-05-12] MEDS: LORazepam 2 MG/ML SDV IVPUSH PRN (18:26)
[2024-05-12] MEDS: FLUoxetine 10 MG Cap PO SCH (21:13)
[2024-05-12] MEDS: Montelukast 10 MG Tab PO SCH (21:14)
[2024-05-13 01:05] LABS: EOSINOPHILS PERCENT AUTO 0.1 % (0.0-6.0); HEMATOCRIT 30.9 % (37.0-47.0); IMMATURE GRAN ABSOLUTE AUTO 0.02 K/mm3 (0.00-0.05); IMMATURE GRAN PERCENT AUTO 0.3 % (0.0-0.4); LYMPHOCYTES ABSOLUTE AUTO 1.1 K/mm3 (1.0-4.8); LYMPHOCYTES PERCENT AUTO 16.2 % (24.0-44.0); MEAN CORPUSCULAR HGB CONC 32.4 g/dl (32.0-36.0); MEAN CORPUSCULAR VOLUME 92.8 fl (83.0-99.0); MEAN PLATELET VOLUME 9.7 fl (9.4-12.3); MONOCYTES PERCENT AUTO 13.8 % (0.0-8.0); NEUTROPHILS ABSOLUTE AUTO 4.8 K/mm3 (1.8-7.7); NEUTROPHILS PERCENT AUTO 69.6 % (41.0-71.0); PLATELET COUNT,PLT 280 K/mm3 (150-400); RED BLOOD CELL COUNT 3.33 M/mm3 (4.10-5.30); WHITE BLOOD CELL COUNT,WBC 6.86 K/mm3 (3.9-11.3)
[2024-05-13 01:41] LABS: A/G RATIO 0.8 (1-2); ANION GAP 11.2 (5-15); BILIRUBIN TOTAL 0.5 mg/dL (0.2-1.0); C-REACTIVE PROTEIN 0.38 mg/dL (<0.30); CALCIUM 7.1 mg/dL (8.5-10.1); CREATININE 0.9 mg/dL (0.55-1.02); EST CRCL DRUG DOSING (CG) 66.67 mL/min; MAGNESIUM 1.4 mg/dL (1.8-2.4); PHOSPHORUS 1.9 mg/dL (2.6-4.7); POTASSIUM,K 3.2 mEq/L (3.5-5.1); PROTEIN TOTAL,TP 6.7 g/dl (6.4-8.2)
[2024-05-13] MEDS ORDERED: Magnesium Sulfate (4.06 MEQ/ML) 5 GM/10 ML SDV IV ONE (02:30)
[2024-05-13] MEDS: Albuterol 0.083% 2.5 MG/3 ML Neb Soln NEB PRN (02:31)
[2024-05-13] MEDS: Potassium Chloride 10 MEQ in Premix Bag 1 BAG IV SCH (03:14)
[2024-05-13] MEDS: Magnesium Sulfate/Water Premix 4 GM in Premix Bag 1 BAG IV ONE (03:15)
[2024-05-13] MEDS: Potassium Chloride 20 MEQ Tab.ER PO ONE (03:15)
[2024-05-13] MEDS: Aspirin 81 MG Tab.EC PO SCH (08:39)
[2024-05-13] MEDS: Enoxaparin 40 MG/0.4 ML Syringe SUBCUT SCH (08:39)
[2024-05-13] MEDS: VILANTER INH SCH (09:11)
[2024-05-13] MEDS: FLUTICASONE INH SCH (09:11)
[2024-05-13] MEDS: UMECLIDIN INH SCH (09:11)
[2024-05-13] MEDS: predniSONE 20 MG Tab PO SCH (09:17)
[2024-05-13] MEDS: Sodium Phosphate 30 MMOLE in Sodium Chloride 0.9% 250 ML IV ONE (11:43)
[2024-05-13 14:29] LABS: ANION GAP 16.1 (5-15); BUN/CREATININE RATIO 18.8 (14-18); CALCIUM 7.6 mg/dL (8.5-10.1); CREATININE 0.8 mg/dL (0.55-1.02); EST CRCL DRUG DOSING (CG) 75.01 mL/min; MAGNESIUM 2.2 mg/dL (1.8-2.4); POTASSIUM,K 4.1 mEq/L (3.5-5.1)
[2024-05-13] MEDS ORDERED: predniSONE 20 MG Tab PO ONE (15:28)
[2024-05-13 17:05] VITALS: BP 143/93; PULSE 88
== END 2024-05-13 16:57 | disposition home or self-care (01) | DRG 189 ==
LOC: JD.ED 05:26 → JD.MS 08:22 → OBSVTOIN 15:07
PROVIDERS: ADMIT Student in an Organized Health Care Education/Training Program; ATTEND Student in an Organized Health Care Education/Training Program
DX: J96.01 Acute respiratory failure with hypoxia (principal); J45.51 Severe persistent asthma with (acute) exacerbation; H54.7 Unspecified visual loss; I10 Essential (primary) hypertension; F41.9 Anxiety disorder, unspecified; E87.6 Hypokalemia; D64.9 Anemia, unspecified; K21.9 Gastro-esophageal reflux disease without esophagitis; F32.A Depression, unspecified; D52.8 Other folate deficiency anemias; E83.39 Other disorders of phosphorus metabolism; R94.31 Abnormal electrocardiogram [ECG] [EKG]; E83.42 Hypomagnesemia; Z79.52 Long term (current) use of systemic steroids; Z90.49 Acquired absence of other specified parts of digestive tract; Z72.0 Tobacco use; Z86.73 Personal history of transient ischemic attack (TIA), and cerebral infarction without residual deficits
CPT/HCPCS: 0241U; 36415; 71045; 71045-26; 80048; 80053; 82746; 83735; 83880; 84100; 84484; 84703; 85025; 86140; 87428-QW; 93005; 93010; 93306; 94640; 94667; 94668; 94761; 99223; 99239; 99285; A9270-GY; J0360; J1650; J1920; J1940; J2060; J2919; J3475; J3480; J3490; J7030; J7040; J7512; J7620-GY

== ENCOUNTER 2024-09-22 07:47 | Emergency (ER) | payer OTHER ==
[2024-09-22] MEDS: LORazepam 2 MG/ML SDV IVPUSH ONE ×2 (08:30→09:05)
[2024-09-22 08:44] LABS: EOSINOPHILS PERCENT AUTO 0.7 % (0.0-6.0); HEMATOCRIT 30.1 % (37.0-47.0); HEMOGLOBIN 9.6 gm/dl (12.0-16.0); IMMATURE GRAN PERCENT AUTO 1.6 % (0.0-0.4); LYMPHOCYTES ABSOLUTE AUTO 0.9 K/mm3 (1.0-4.8); LYMPHOCYTES PERCENT AUTO 14.6 % (24.0-44.0); MEAN CORPUSCULAR HEMOGLOBIN 28.6 pg (28.0-32.0); MEAN CORPUSCULAR HGB CONC 31.9 g/dl (32.0-36.0); MEAN PLATELET VOLUME 9.2 fl (9.4-12.3); MONOCYTES ABSOLUTE AUTO 0.5 K/mm3 (0.0-0.8); MONOCYTES PERCENT AUTO 7.7 % (0.0-8.0); NEUTROPHILS ABSOLUTE AUTO 4.6 K/mm3 (1.8-7.7); NEUTROPHILS PERCENT AUTO 75.4 % (41.0-71.0); PLATELET COUNT,PLT 353 K/mm3 (150-400); RED BLOOD CELL COUNT 3.36 M/mm3 (4.10-5.30); WHITE BLOOD CELL COUNT,WBC 6.11 K/mm3 (3.9-11.3)
[2024-09-22 08:45] LABS: MEAN CORPUSCULAR VOLUME 89.6 fl (83.0-99.0)
[2024-09-22] MEDS: droPERidol 2.5 MG/ML SDV IV PRN (08:56)
[2024-09-22 09:06] LABS: A/G RATIO 0.8 (1-2); ALBUMIN 3.4 g/dl (3.4-5.0); ANION GAP 14.6 (5-15); BILIRUBIN TOTAL 0.3 mg/dL (0.2-1.0); BUN/CREATININE RATIO 23.8 (14-18); CALCIUM 9.6 mg/dL (8.5-10.1); CREATININE 0.8 mg/dL (0.55-1.02); EST CRCL DRUG DOSING (CG) 75.01 mL/min; MAGNESIUM 1.6 mg/dL (1.8-2.4); POTASSIUM,K 3.6 mEq/L (3.5-5.1); PROTEIN TOTAL,TP 7.5 g/dl (6.4-8.2)
[2024-09-22] MEDS: Magnesium Sulfate 2 GM/50 mL 2 GM/50 ML BAG IV ONE (09:51)
[2024-09-22] MEDS: Sodium Chloride 0.9% 1,000 ML IV ONE (10:02)
[2024-09-22 19:21] VITALS: BP 122/85; PULSE 109
== END 2024-09-22 17:45 | disposition home or self-care (01) ==
LOC: JD.ED 07:47
DX: R41.82 Altered mental status, unspecified (principal); R56.9 Unspecified convulsions; J45.909 Unspecified asthma, uncomplicated; I10 Essential (primary) hypertension; Z79.82 Long term (current) use of aspirin; Z79.899 Other long term (current) drug therapy; Z90.49 Acquired absence of other specified parts of digestive tract; Z87.01 Personal history of pneumonia (recurrent)
CPT/HCPCS: 36415; 70450; 80053; 82550; 83735; 85025; 96365; 96375; 96376; 99285; J1790; J2060; J3475; J7030; 99284

== ENCOUNTER 2024-11-07 05:03 | Emergency (ER) | payer OTHER ==
[2024-11-07] MEDS ORDERED: Sodium Chloride 0.9% 10 ML Syringe FLUSH PRN ×2 (05:22→05:24)
[2024-11-07] MEDS: Iopamidol 755 Mg/ML 100 ML Bottle IVPUSH ONE (05:39)
[2024-11-07 05:58] LABS: BASOPHILS ABSOLUTE AUTO 0.0 K/mm3 (0.0-0.2); BASOPHILS PERCENT AUTO 0.3 % (0.0-1.0); EOSINOPHILS ABSOLUTE AUTO 0.1 K/mm3 (0.0-0.4); EOSINOPHILS PERCENT AUTO 2.0 % (0.0-6.0); IMMATURE GRAN ABSOLUTE AUTO 0.02 K/mm3 (0.00-0.05); IMMATURE GRAN PERCENT AUTO 0.3 % (0.0-0.4); LYMPHOCYTES ABSOLUTE AUTO 2.1 K/mm3 (1.0-4.8); LYMPHOCYTES PERCENT AUTO 35.6 % (24.0-44.0); MEAN PLATELET VOLUME 10.2 fl (9.4-12.3); MONOCYTES ABSOLUTE AUTO 0.4 K/mm3 (0.0-0.8); MONOCYTES PERCENT AUTO 6.1 % (0.0-8.0); NEUTROPHILS ABSOLUTE AUTO 3.3 K/mm3 (1.8-7.7); NEUTROPHILS PERCENT AUTO 55.7 % (41.0-71.0); NRBC ABSOLUTE 0.00 (0.00-0.02); NRBC PERCENT 0.0 % (0.0-0.2); PLATELET COUNT,PLT 301 K/mm3 (150-400); RED BLOOD CELL COUNT 3.26 M/mm3 (4.10-5.30); WHITE BLOOD CELL COUNT,WBC 5.92 K/mm3 (3.9-11.3)
[2024-11-07 06:01] LABS: PTT,PARTIAL THROMBOPLSTIN TIME 22.5 SECONDS (21.7-31.4)
[2024-11-07 06:02] LABS: A/G RATIO 0.9 (1-2); BILIRUBIN TOTAL 0.3 mg/dL (0.2-1.0); BLOOD UREA NITROGEN,BUN 18 mg/dL (7-18); CARBON DIOXIDE,CO2 29 mEq/L (21-32); CHLORIDE,CL 104 mEq/L (98-107); CREATININE 0.8 mg/dL (0.55-1.02); EST CRCL DRUG DOSING (CG) 75.01 mL/min; ESTIMATED GFR 94 mL/min (>60); ETHANOL BLOOD MEDICAL 0.24 gm% (0.00); PROTEIN TOTAL,TP 7.3 g/dl (6.4-8.2); SODIUM,NA 140 mEq/L (136-145); TSH 1.553 uIU/mL (0.358-3.74)
[2024-11-07 06:05] LABS: GLUCOSE RANDOM 116 mg/dL (70-99); INR < 0.93; POTASSIUM,K 4.5 mEq/L (3.5-5.1)
[2024-11-07 06:52] LABS: APPEARANCE,URINE CLEAR (Clear); GLUCOSE,URINE NEGATIVE (Negative); OCCULT BLOOD,URINE NEGATIVE (Negative)
[2024-11-07 07:02] LABS: BUPRENORPHINE SCREEN,URINE NEGATIVE (CUTOFF=10); METHADONE SCREEN, URINE NEGATIVE (CUTOFF=200); METHAMPHETAMINES SCREEN, URINE NEGATIVE (CUTOFF=500); OXYCODONE SCREEN,URINE NEGATIVE (CUT0FF=100); THC SCREEN,URINE 20 NG/ML PRESUMPTIVE POSITIVE (CUTOFF=50)
[2024-11-07 07:08] LABS: AMPHETAMINES SCREEN, URINE NEGATIVE (CUTOFF=500)
[2024-11-07 12:08] VITALS: BP 125/86; PULSE 101
== END 2024-11-07 12:14 | disposition home or self-care (01) ==
LOC: JD.ED 05:03
DX: F10.120 Alcohol abuse with intoxication, uncomplicated (principal); F12.120 Cannabis abuse with intoxication, uncomplicated; I48.91 Unspecified atrial fibrillation; I10 Essential (primary) hypertension; J45.909 Unspecified asthma, uncomplicated; Z79.51 Long term (current) use of inhaled steroids; Z79.82 Long term (current) use of aspirin; Z79.899 Other long term (current) drug therapy; Z86.73 Personal history of transient ischemic attack (TIA), and cerebral infarction without residual deficits; Z90.49 Acquired absence of other specified parts of digestive tract; Y90.9 Presence of alcohol in blood, level not specified
CPT/HCPCS: 36415; 70450; 70496; 70498; 71045; 80053; 80143; 80179; 80306; 80307; 81003; 82947; 83735; 83880; 84443; 84484; 84703; 85025; 85610; 85730; 93005; 96374; 99285; J2310; J7030; Q9967; 93010; 99283

== ENCOUNTER 2024-12-03 14:44 | Emergency (ER) | payer OTHER ==
[2024-12-03 15:19] LABS: BASOPHILS ABSOLUTE AUTO 0.0 K/mm3 (0.0-0.2); BASOPHILS PERCENT AUTO 0.4 % (0.0-1.0); EOSINOPHILS ABSOLUTE AUTO 0.2 K/mm3 (0.0-0.4); EOSINOPHILS PERCENT AUTO 2.1 % (0.0-6.0); IMMATURE GRAN ABSOLUTE AUTO 0.02 K/mm3 (0.00-0.05); IMMATURE GRAN PERCENT AUTO 0.2 % (0.0-0.4); LYMPHOCYTES ABSOLUTE AUTO 1.8 K/mm3 (1.0-4.8); LYMPHOCYTES PERCENT AUTO 21.1 % (24.0-44.0); MEAN PLATELET VOLUME 10.5 fl (9.4-12.3); MONOCYTES ABSOLUTE AUTO 0.7 K/mm3 (0.0-0.8); MONOCYTES PERCENT AUTO 7.6 % (0.0-8.0); NEUTROPHILS ABSOLUTE AUTO 5.9 K/mm3 (1.8-7.7); NEUTROPHILS PERCENT AUTO 68.6 % (41.0-71.0); NRBC ABSOLUTE 0.00 (0.00-0.02); NRBC PERCENT 0.0 % (0.0-0.2); RED BLOOD CELL COUNT 3.57 M/mm3 (4.10-5.30); WHITE BLOOD CELL COUNT,WBC 8.55 K/mm3 (3.9-11.3)
[2024-12-03 15:21] LABS: PLATELET COUNT,PLT 201 K/mm3 (150-400)
[2024-12-03 15:36] LABS: A/G RATIO 1.0 (1-2); BLOOD UREA NITROGEN,BUN 11 mg/dL (7-18); ESTIMATED GFR 94 mL/min (>60)
[2024-12-03 15:54] LABS: ALANINE AMINOTRANSFERASE,ALT 18 U/L (14-59); ASPARTATE AMNIOTRANSFERASE,AST 20 U/L (15-37); BILIRUBIN TOTAL 0.2 mg/dL (0.2-1.0); CREATINE KINASE,CK 126 U/L (26-192); CREATININE 0.8 mg/dL (0.55-1.02); ETHANOL BLOOD MEDICAL 0.10 gm% (0.00); GLUCOSE RANDOM 92 mg/dL (70-99); PROTEIN TOTAL,TP 6.8 g/dl (6.4-8.2)
[2024-12-03 16:23] LABS: CARBON DIOXIDE,CO2 23 mEq/L (21-32); SODIUM,NA 137 mEq/L (136-145)
[2024-12-03 16:23] LABS: APPEARANCE,URINE CLEAR (Clear); GLUCOSE,URINE NEGATIVE (Negative); OCCULT BLOOD,URINE NEGATIVE (Negative)
[2024-12-03 16:29] LABS: CHLORIDE,CL 99 mEq/L (98-107); POTASSIUM,K 2.9 mEq/L (3.5-5.1)
[2024-12-03 16:32] LABS: BUPRENORPHINE SCREEN,URINE NEGATIVE (CUTOFF=10); METHADONE SCREEN, URINE NEGATIVE (CUTOFF=200); METHAMPHETAMINES SCREEN, URINE NEGATIVE (CUTOFF=500); OXYCODONE SCREEN,URINE NEGATIVE (CUT0FF=100); THC SCREEN,URINE 20 NG/ML PRESUMPTIVE POSITIVE (CUTOFF=50)
[2024-12-03 16:34] LABS: AMPHETAMINES SCREEN, URINE NEGATIVE (CUTOFF=500)
[2024-12-03 16:44] LABS: SQUAMOUS EPITHELIAL CELLS,UR 20-30 /hpf (0-5)
[2024-12-03 17:57] VITALS: BP 115/81; PULSE 100
== END 2024-12-03 16:55 | disposition home or self-care (01) ==
LOC: JD.ED 14:44
DX: F10.120 Alcohol abuse with intoxication, uncomplicated (principal); F45.0 Somatization disorder; I48.91 Unspecified atrial fibrillation; I10 Essential (primary) hypertension; J45.909 Unspecified asthma, uncomplicated; Z86.73 Personal history of transient ischemic attack (TIA), and cerebral infarction without residual deficits; Z90.49 Acquired absence of other specified parts of digestive tract; Z79.51 Long term (current) use of inhaled steroids; Z79.82 Long term (current) use of aspirin; Z79.899 Other long term (current) drug therapy; Z91.89 Other specified personal risk factors, not elsewhere classified; Y90.9 Presence of alcohol in blood, level not specified
CPT/HCPCS: 36415; 70450; 70450-26; 80053; 80306; 80307; 81001; 82550; 82947; 83605; 83690; 83735; 85025; 99283; 99285

== ENCOUNTER 2024-12-03 19:43 | Emergency (ER) | payer OTHER ==
[2024-12-03 19:56] LABS: BASOPHILS ABSOLUTE AUTO 0.0 K/mm3 (0.0-0.2); BASOPHILS PERCENT AUTO 0.4 % (0.0-1.0); EOSINOPHILS ABSOLUTE AUTO 0.2 K/mm3 (0.0-0.4); EOSINOPHILS PERCENT AUTO 3.2 % (0.0-6.0); IMMATURE GRAN ABSOLUTE AUTO 0.02 K/mm3 (0.00-0.05); IMMATURE GRAN PERCENT AUTO 0.3 % (0.0-0.4); LYMPHOCYTES ABSOLUTE AUTO 2.4 K/mm3 (1.0-4.8); LYMPHOCYTES PERCENT AUTO 31.3 % (24.0-44.0); MEAN PLATELET VOLUME 10.6 fl (9.4-12.3); MONOCYTES ABSOLUTE AUTO 0.5 K/mm3 (0.0-0.8); MONOCYTES PERCENT AUTO 6.9 % (0.0-8.0); NEUTROPHILS ABSOLUTE AUTO 4.4 K/mm3 (1.8-7.7); NEUTROPHILS PERCENT AUTO 57.9 % (41.0-71.0); NRBC ABSOLUTE 0.00 (0.00-0.02); NRBC PERCENT 0.0 % (0.0-0.2); PLATELET COUNT,PLT 225 K/mm3 (150-400); RED BLOOD CELL COUNT 3.69 M/mm3 (4.10-5.30); WHITE BLOOD CELL COUNT,WBC 7.57 K/mm3 (3.9-11.3)
[2024-12-03 20:09] LABS: INR 0.98
[2024-12-03 20:17] LABS: A/G RATIO 1.0 (1-2); ALANINE AMINOTRANSFERASE,ALT 18 U/L (14-59); ASPARTATE AMNIOTRANSFERASE,AST 24 U/L (15-37); BILIRUBIN TOTAL 0.2 mg/dL (0.2-1.0); BLOOD UREA NITROGEN,BUN 11 mg/dL (7-18); CARBON DIOXIDE,CO2 28 mEq/L (21-32); CHLORIDE,CL 100 mEq/L (98-107); CREATININE 0.9 mg/dL (0.55-1.02); ESTIMATED GFR 81 mL/min (>60); GLUCOSE RANDOM 98 mg/dL (70-99); POTASSIUM,K 3.3 mEq/L (3.5-5.1); PROTEIN TOTAL,TP 7.1 g/dl (6.4-8.2); SODIUM,NA 139 mEq/L (136-145)
[2024-12-03 20:18] LABS: ETHANOL BLOOD MEDICAL 0.00 gm% (0.00)
[2024-12-03] MEDS: Iopamidol 612 MG/ML 100 ML Bottle IVPUSH ONE (20:21)
[2024-12-03] MEDS: Iopamidol 612 MG/ML 30 ML SDV IV ONE (20:21)
[2024-12-03 20:31] LABS: TROPONIN I HIGH SENSITIVITY 10 pg/mL (<=51)
[2024-12-03] MEDS: Potassium Chloride 20 MEQ Tab.ER PO ONE (22:38)
[2024-12-03 23:42] VITALS: BP 152/92; PULSE 118
== END 2024-12-03 22:30 | disposition home or self-care (01) ==
LOC: JD.ED 19:43
DX: S51.811A Laceration without foreign body of right forearm, initial encounter (principal); R07.2 Precordial pain; E83.42 Hypomagnesemia; E87.6 Hypokalemia; I10 Essential (primary) hypertension; Z79.82 Long term (current) use of aspirin; Z79.899 Other long term (current) drug therapy; Z90.49 Acquired absence of other specified parts of digestive tract; V26.99XA Unspecified rider of other motorcycle injured in collision with other nonmotor vehicle in traffic accident, initial encounter
CPT/HCPCS: 12001; 36415; 70450; 70486; 71260; 72125; 73060; 73090; 74177; 80053; 80307; 83690; 83735; 84484; 84703; 85025; 85610; 93005; 96374; 99285; A9270; J2003; J2270; J7030; Q9967; 93010; 99284

== ENCOUNTER 2025-02-04 13:05 | Emergency (ER) | payer OTHER ==
[2025-02-04] MEDS: Ketorolac 60 MG/2 ML SDV IVPUSH STA (14:35)
[2025-02-04 14:45] LABS: BASOPHILS ABSOLUTE AUTO 0.0 K/mm3 (0.0-0.2); BASOPHILS PERCENT AUTO 0.4 % (0.0-1.0); EOSINOPHILS ABSOLUTE AUTO 0.0 K/mm3 (0.0-0.4); EOSINOPHILS PERCENT AUTO 0.1 % (0.0-6.0); IMMATURE GRAN ABSOLUTE AUTO 0.03 K/mm3 (0.00-0.05); IMMATURE GRAN PERCENT AUTO 0.4 % (0.0-0.4); LYMPHOCYTES ABSOLUTE AUTO 1.2 K/mm3 (1.0-4.8); LYMPHOCYTES PERCENT AUTO 17.8 % (24.0-44.0); MEAN PLATELET VOLUME 9.6 fl (9.4-12.3); MONOCYTES ABSOLUTE AUTO 0.5 K/mm3 (0.0-0.8); MONOCYTES PERCENT AUTO 8.0 % (0.0-8.0); NEUTROPHILS ABSOLUTE AUTO 5.0 K/mm3 (1.8-7.7); NEUTROPHILS PERCENT AUTO 73.3 % (41.0-71.0); NRBC ABSOLUTE 0.00 (0.00-0.02); NRBC PERCENT 0.0 % (0.0-0.2); PLATELET COUNT,PLT 252 K/mm3 (150-400); RED BLOOD CELL COUNT 3.81 M/mm3 (4.10-5.30); WHITE BLOOD CELL COUNT,WBC 6.78 K/mm3 (3.9-11.3)
[2025-02-04 15:11] LABS: A/G RATIO 1.1 (1-2); ALANINE AMINOTRANSFERASE,ALT 18.0 U/L (14-59); ASPARTATE AMNIOTRANSFERASE,AST 19.0 U/L (15-37); BILIRUBIN TOTAL 1.5 mg/dL (0.2-1.0); BLOOD UREA NITROGEN,BUN 14.0 mg/dL (7-18); CARBON DIOXIDE,CO2 26.0 mEq/L (21-32); CHLORIDE,CL 101.0 mEq/L (98-107); CREATINE KINASE,CK 120.0 U/L (26-192); CREATININE 0.7 mg/dL (0.55-1.02); EST CRCL DRUG DOSING (CG) 84.84 mL/min; ESTIMATED GFR 109.0 mL/min (>60); GLUCOSE RANDOM 108.0 mg/dL (70-99); POTASSIUM,K 3.3 mEq/L (3.5-5.1); PROTEIN TOTAL,TP 7.4 g/dl (6.4-8.2); SODIUM,NA 140.0 mEq/L (136-145)
[2025-02-04] MEDS: Iopamidol 612 MG/ML 100 ML Bottle IVPUSH ONE (15:36)
[2025-02-04] MEDS: Sodium Chloride 0.9% 10 ML Syringe FLUSH ONE (15:36)
[2025-02-04 15:39] LABS: APPEARANCE,URINE CLEAR (Clear); GLUCOSE,URINE NEGATIVE (Negative); OCCULT BLOOD,URINE NEGATIVE (Negative)
[2025-02-04] MEDS: Magnesium Sulf/Wat 4 GM/50 mL 4 GM in Premix Bag 1 BAG IV ONE (15:46)
[2025-02-04] MEDS: Potassium Chloride 20 MEQ Tab.ER PO ONE (15:47)
[2025-02-04 15:49] LABS: BUPRENORPHINE SCREEN,URINE NEGATIVE (CUTOFF=10); METHADONE SCREEN, URINE NEGATIVE (CUTOFF=200); METHAMPHETAMINES SCREEN, URINE NEGATIVE (CUTOFF=500); OXYCODONE SCREEN,URINE NEGATIVE (CUT0FF=100); THC SCREEN,URINE 20 NG/ML PRESUMPTIVE POSITIVE (CUTOFF=50)
[2025-02-04 15:51] LABS: AMPHETAMINES SCREEN, URINE NEGATIVE (CUTOFF=500)
[2025-02-04 18:01] VITALS: BP 138/93; PULSE 96
== END 2025-02-04 18:08 | disposition home or self-care (01) ==
LOC: JD.ED 13:05
DX: R10.31 Right lower quadrant pain (principal); R30.0 Dysuria; I10 Essential (primary) hypertension; Z79.82 Long term (current) use of aspirin; Z79.899 Other long term (current) drug therapy
CPT/HCPCS: 36415; 74177; 80053; 80306; 81001; 82550; 83690; 83735; 85025; 96361; 96365; 96375; 99284; A9270; J1885; J3475; J7030; Q9967